=== PATIENT | male | born 1965 | race Caucasian/White ===

== ENCOUNTER 2017-08-26 13:36 | Emergency (ER) | payer OTHER ==
[~2017-08-26] VITALS: Ht 190.5 cm; Wt 140.6 kg
--- NOTE | ~2017-08-26 | EKG ---
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
[2017-08-26] MEDS ORDERED: NORVASC5 MG PO (14:41)
== END 2017-08-26 15:11 | disposition home or self-care (01) ==
LOC: ER 13:36
DX: I10 Essential (primary) hypertension (principal)